=== PATIENT | female | born 1965 | race Caucasian/White ===

== ENCOUNTER → 2017-11-25 | Outpatient (CLI) | payer BC, OTHER ==
[~2017-11-25] MED LIST: AZIT-21 PO; CEFD300C3 PO; KETO10TA77 PO; MULT1CAP27 PO
--- NOTE | 2017-11-25 09:19 | Diagnostic Imaging Report ---
INDICATION: Abnormal mammogram. TECHNIQUE: Multiple realtime grayscale images were obtained over the upper outer aspect of the right breast. FINDINGS: There is no evidence of a discrete, solid or cystic mass in the right breast. Fibroglandular tissue has a heterogeneous appearance. IMPRESSION: Negative right breast ultrasound. Dictated by: Dictated on workstation # [id number]
--- NOTE | 2017-11-25 11:06 | Diagnostic Imaging Report ---
INDICATION: Followup abnormal mammogram. COMPARISON: 01/27/2014. TECHNIQUE: Spot compression views of the right breast were obtained as were CC and MLO views of both breasts. The current study was also evaluated with a Computer Aided Detection (CAD) system. FINDINGS: There is a moderate amount of residual fibroglandular tissue bilaterally. There is no dominant mass, spiculated lesion, or suspicious calcification identified. The skin, nipples, and axillae are unremarkable. Ultrasound of the upper outer right breast was also performed which was negative. IMPRESSION: Negative. ACR BI-RADS Category 1: Negative. Result letter will be mailed to the patient. Note: At least 10% of breast cancer is not imaged by mammography. Dictated by: Dictated on workstation # [id number]
== END ==
LOC: RAD 07:23
PROVIDERS: ATTEND Family Medicine
DX: R92.8 Other abnormal and inconclusive findings on diagnostic imaging of breast (principal)